=== PATIENT | male | born 1965 | race Caucasian/White ===

== ENCOUNTER 2016-10-31 00:19 | Outpatient (CLI) | payer BC | END 2016-10-31 00:20 | disposition critical access hospital (66) | LOC: EMS 00:19 | PROVIDERS: ATTEND Surgery | DX: R40.20 Unspecified coma (principal) | CPT/HCPCS: A0425; A0429 ==

== ENCOUNTER 2016-10-31 00:37 | Emergency (ER) | payer SELFPAY ==
[2016-10-31] MEDS ORDERED: SODIUM CHLORIDE 0.9% 1,000 ML IV ONE (00:50)
[2016-10-31] MEDS ORDERED: ONDANSETRON 4 MG/2 ML VIAL IVP STA (00:53)
[2016-10-31] MEDS ORDERED: ONDANSETRON 4 MG/2 ML VIAL ONE ×2 (00:53)
== END 2016-10-31 06:38 | disposition home or self-care (01) ==
DX: F10.120 Alcohol abuse with intoxication, uncomplicated (principal); S00.81XA Abrasion of other part of head, initial encounter; W01.198A Fall on same level from slipping, tripping and stumbling with subsequent striking against other object, initial encounter; Y92.29 Other specified public building as the place of occurrence of the external cause